=== PATIENT | female | born 1985 | race Caucasian/White ===

== ENCOUNTER 2023-11-29 18:32 | Emergency (ER) | payer OTHER ==
[~2023-11-29] VITALS: Ht 165.1 cm; Wt 86.2 kg
[~2023-11-29 18:32] MED LIST: PRENATAL TABLE1 EAC2 PO
[2023-11-29 18:54] VITALS: BP 127/91
== END 2023-11-29 21:12 | disposition home or self-care (01) ==
LOC: ER 18:32
DX: F15.951 Other stimulant use, unspecified with stimulant-induced psychotic disorder with hallucinations (principal); F17.200 Nicotine dependence, unspecified, uncomplicated
CPT/HCPCS: 99282

== ENCOUNTER 2024-02-27 11:15 | Emergency (ER) | payer OTHER ==
[~2024-02-27] VITALS: Ht 165.1 cm; Wt 81.7 kg
[2024-02-27 11:58] VITALS: BP 158/66
[2024-02-27 14:46] LABS: Chlamydia Trachomatis Vaginal NOT DETECTED (NOT DETECT); Neisseria Gonorrhoea Vaginal NOT DETECTED (NOT DETECT)
[2024-02-27 15:01] LABS: Candida Group, PCR NOT DETECTED (NOT DETECT); Candida glabrata-krusei, PCR NOT DETECTED (NOT DETECT)
[2024-02-27 15:02] LABS: Bacterial Vaginosis PCR Positive (NEGATIVE)
[2024-02-27] MEDS ORDERED: Flagyl500 MG PO (15:20)
== END 2024-02-27 13:30 | disposition home or self-care (01) ==
LOC: ER 11:15
PROVIDERS: Physician Assistant
DX: A59.01 Trichomonal vulvovaginitis (principal); F17.200 Nicotine dependence, unspecified, uncomplicated
CPT/HCPCS: 87481; 87491; 87591; 87661; 87801; 99282

== ENCOUNTER 2024-02-27 21:45 | Emergency (ER) | payer OTHER ==
[~2024-02-27] VITALS: Ht 170.2 cm; Wt 63.5 kg
[~2024-02-27 21:45] MED LIST changes: +Flagyl500 MG PO
[2024-02-27 21:57] VITALS: BP 131/70
== END 2024-02-27 23:47 | disposition home or self-care (01) ==
LOC: ER 21:45
DX: N89.9 Noninflammatory disorder of vagina, unspecified (principal); F17.200 Nicotine dependence, unspecified, uncomplicated; Z79.899 Other long term (current) drug therapy
CPT/HCPCS: 99282

== ENCOUNTER → 2024-03-04 | Outpatient (CLI) | payer OTHER ==
[2024-03-11 14:11] LABS: OVA AND PARASITE,FECAL INTERP Negative (Negative)
== END ==
LOC: LAB SHORT 09:25 → LAB 09:25 → LAB FUT 03-03 10:10
PROVIDERS: Physician Assistant
DX: L29.0 Pruritus ani (principal)
CPT/HCPCS: 87177; 87209

== ENCOUNTER → 2024-11-18 | Outpatient (CLI) | payer OTHER ==
[2024-11-19 13:12] LABS: Chlamydia Trachomatis Vaginal NOT DETECTED (NOT DETECT); Neisseria Gonorrhoea Vaginal NOT DETECTED (NOT DETECT)
== END | disposition home or self-care (01) ==
LOC: LAB SHORT 14:21 → LAB 14:21
PROVIDERS: Family Medicine
DX: Z12.4 Encounter for screening for malignant neoplasm of cervix (principal); Z86.19 Personal history of other infectious and parasitic diseases
CPT/HCPCS: 87491; 87591

== ENCOUNTER → 2025-01-06 | Outpatient (CLI) | payer OTHER | END | disposition home or self-care (01) | LOC: LAB SHORT 10:50 → LAB 10:50 | DX: E06.3 Autoimmune thyroiditis (principal) | CPT/HCPCS: 84443 ==